=== PATIENT | female | born 1945 | race Caucasian/White ===

== ENCOUNTER 2018-09-16 01:57 | Inpatient (IN) | payer MEDICARE ==
[~2018-09-16] VITALS: Ht 172.7 cm; Wt 75.1 kg
[2018-09-16 03:07] LABS: MICROSCOPIC AUTO
[2018-09-16 03:16] LABS: CULTURE INDICATED? YES
[2018-09-16] MEDS ORDERED: PIPERACILLIN/TAZO/PMX 3.375GM 50 ML ONE (03:25)
[2018-09-16 03:27] LABS: BASOPHILS # (AUTO) 0.01 x10^3/uL (0-0.1); BASOPHILS % (AUTO) 0 % (0-1); EOSINOPHILS % (AUTO) 0 % (1-7); LYMPHOCYTES % (AUTO) 6 % (22-44); MD NO; MEAN CORPUSCULAR HEMOGLOBIN 29.8 pg (27.0-34.8); MEAN CORPUSCULAR HGB CONC 32.8 g/dL (32.4-35.8); MEAN CORPUSCULAR VOLUME 90.8 fL (80-100); MEAN PLATELET VOLUME 9.6 fL (7.4-10.4); MONOCYTES % (AUTO) 2 % (2-9); NEUTROPHILS # (AUTO) 8.09 x10^3/uL (1.8-6.8); NEUTROPHILS % (AUTO) 92 % (42-75); PLATELET COUNT 180 x10^3/uL (130-400); RED BLOOD COUNT 5.34 x10^6/uL (3.82-5.3); RED CELL DISTRIBUTION WIDTH 15.9 % (9.6-15.2)
[2018-09-16] MEDS ORDERED: VANCOMYCIN 1,300 MG in SODIUM CHLORIDE 0.9% 250 ML IV ONE (03:30)
[2018-09-16] MEDS ORDERED: PIPERACILLIN/TAZO/PMX 3.375GM 50 ML IVPB ONE (03:30)
[2018-09-16] MEDS ORDERED: SODIUM CHLORIDE 0.9% 1,000ML IVBOLUS ONE (03:30)
[2018-09-16] MEDS ORDERED: VANCOMYCIN PER PHARMACY IV ONE (03:30)
[2018-09-16 03:35] LABS: ALANINE AMINOTRANSFERASE 26 U/L (12-78); ALBUMIN 2.6 g/dL (3.4-5.0); ANION GAP 7 mmol/L (5-15); CALCIUM 8.2 mg/dL (8.5-10.1); CHLORIDE 113 mmol/L (98-107); CREATININE 1.44 mg/dL (0.55-1.02)
[2018-09-16 03:37] LABS: ALKALINE PHOSPHATASE 132 U/L (45-117); BILIRUBIN,TOTAL 0.3 mg/dL (0.2-1.0); TOTAL PROTEIN 7.1 g/dL (6.4-8.2)
[2018-09-16 04:17] LABS: PROTHROMBIN TIME 10.6 Seconds (9.6-11.5)
[2018-09-16] MEDS ORDERED: SODIUM CHLORIDE 0.9% 1,000 ML IV ONE (04:35)
[2018-09-16] MEDS ORDERED: ONDANSETRON 2MG/ML, 2ML IVPush PRN ×2 (05:00→06:00)
[2018-09-16] MEDS ORDERED: hydrALAzine 20 MG/ML, 1ML IVPush PRN (06:00)
[2018-09-16] MEDS ORDERED: DOCUSATE 100 MG CAPSULE PO PRN (06:00)
[2018-09-16] MEDS ORDERED: OXYcodone IR 5MG TABLET PO PRN (06:00)
[2018-09-16] MEDS: HEPARIN 5,000 UNITS/ML, 1ML SQ SCH ×3 (06:23→22:26)
[2018-09-16] MEDS: SODIUM CHLORIDE 0.9% 1,000 ML IV SCH ×3 (06:23→21:58)
[2018-09-16] MEDS ORDERED: PHARMACOKINETIC CONSULTATION MC ONE (06:30)
[2018-09-16] MEDS ORDERED: PHARMACOKINETIC MONITORING MC PRN (06:30)
[2018-09-16] MEDS ORDERED: VANCOMYCIN PER PHARMACY MC PRN (06:30)
[2018-09-16 06:39] LABS: OSMOLALITY,URINE 399 mOsm/kg (500-850)
[2018-09-16 06:45] LABS: CHLORIDE,URINE RANDOM 49 mmol/L; POTASSIUM,URINE RANDOM 43 mmol/L; SODIUM,URINE RANDOM 52 mmol/L
[2018-09-16 06:48] VITALS: BP 94/58
[2018-09-16] MEDS ORDERED: DIAZ2TAB3 PO (12:19)
[2018-09-16] MEDS ORDERED: BACL20TA PO (12:19)
[2018-09-16] MEDS ORDERED: LEVO100T PO (12:25)
[2018-09-16] MEDS ORDERED: BRIM5DRO3 EACHEYE (12:25)
[2018-09-16] MEDS ORDERED: BACL5TAB PO ×2 (12:25)
[2018-09-16 12:28] VITALS: BP 100/52
[2018-09-16] MEDS ORDERED: PRED10TA14 PO (13:14)
[2018-09-16] MEDS ORDERED: TRAV5DRO EACHEYE (13:14)
[2018-09-16] MEDS ORDERED: NYST15CR2 TP (13:14)
[2018-09-16] MEDS ORDERED: AMIT10TA PO (13:14)
[2018-09-16] MEDS: PIPERACILLIN/TAZO/PMX 3.375GM 50 ML IV SCH ×2 (15:13→22:26)
[2018-09-16] MEDS ORDERED: BACL-19 PO ×3 (15:57)
[2018-09-16] MEDS ORDERED: MENT3.5O EXT (15:57)
[2018-09-16] MEDS ORDERED: POTA20TA14 PO (15:57)
[2018-09-16] MEDS ORDERED: ALBU0.63 NEB (15:57)
[2018-09-16] MEDS ORDERED: SENN1TAB84 PO/NG (15:57)
[2018-09-16] MEDS ORDERED: (Brimonidine Tartrate** (Alphagan P**) 1 DROP(S)) HOMETD SCH (16:00)
[2018-09-16] MEDS ORDERED: TEMPLATE NON-FORMULARY MED. 1 EA, TEMPLATE NON-FORMULARY MED. 1 EA EACHEYE SCH ×3 (16:00→21:00)
[2018-09-16] MEDS ORDERED: TRAVOPROST OPHTH 0.004%, 2.5ML HOMEOPHTH PRN (16:00)
[2018-09-16] MEDS ORDERED: NYSTATIN/TRIAMCINOLONE CRM 15GM TP PRN (16:00)
[2018-09-16 17:19] LABS: ANION GAP 9 mmol/L (5-15); CALCIUM 7.5 mg/dL (8.5-10.1); CHLORIDE 120 mmol/L (98-107)
[2018-09-16 19:43] VITALS: BP 98/57
[2018-09-16] MEDS ORDERED: TRAVOPROST OPHTH 0.004%, 2.5ML HOMEOPHTH SCH (20:00)
[2018-09-17 01:58] VITALS: BP 116/66
[2018-09-17 05:36] LABS: BASOPHILS # (AUTO) 0.01 x10^3/uL (0-0.1); BASOPHILS % (AUTO) 0 % (0-1); EOSINOPHILS % (AUTO) 0 % (1-7); LYMPHOCYTES # (AUTO) 1.09 x10^3/uL (1-3.4); LYMPHOCYTES % (AUTO) 15 % (22-44); MD NO; MEAN CORPUSCULAR HEMOGLOBIN 29.9 pg (27.0-34.8); MEAN CORPUSCULAR HGB CONC 33.1 g/dL (32.4-35.8); MEAN CORPUSCULAR VOLUME 90.3 fL (80-100); MEAN PLATELET VOLUME 9.4 fL (7.4-10.4); MONOCYTES # (AUTO) 0.22 x10^3/uL (0.2-0.8); MONOCYTES % (AUTO) 3 % (2-9); NEUTROPHILS # (AUTO) 5.99 x10^3/uL (1.8-6.8); NEUTROPHILS % (AUTO) 82 % (42-75); PLATELET COUNT 154 x10^3/uL (130-400); RED BLOOD COUNT 4.31 x10^6/uL (3.82-5.3); RED CELL DISTRIBUTION WIDTH 15.7 % (9.6-15.2)
[2018-09-17 05:43] LABS: ANION GAP 9 mmol/L (5-15); CHLORIDE 123 mmol/L (98-107); CREATININE 0.65 mg/dL (0.55-1.02)
[2018-09-17] MEDS: PIPERACILLIN/TAZO/PMX 3.375GM 50 ML IV SCH ×4 (05:50→23:51)
[2018-09-17] MEDS: HEPARIN 5,000 UNITS/ML, 1ML SQ SCH (05:50)
[2018-09-17] MEDS: SODIUM CHLORIDE 0.9% 1,000 ML IV SCH (05:50)
[2018-09-17 05:56] LABS: VANCOMYCIN,RANDOM 6.5 mcg/mL
[2018-09-17 08:39] VITALS: BP 127/78
[2018-09-17] MEDS: VANCOMYCIN 1,300 MG in SODIUM CHLORIDE 0.9% 250 ML IV SCH (10:24)
[2018-09-17] MEDS ORDERED: POTASSIUM PHOSPHATE 44 MEQ in SODIUM CHLORIDE 0.9% 500 ML IV ONE (10:30)
[2018-09-17 12:43] VITALS: BP 111/68
[2018-09-17] MEDS: D5%-0.45NACL+KCL 20MEQ 1,000 ML IV SCH ×3 (12:57→23:51)
[2018-09-17] MEDS: ENOXAPARIN 40 MG/0.4 ML SQ SCH (16:57)
[2018-09-17 18:36] LABS: ANION GAP 14 mmol/L (5-15); CALCIUM 7.1 mg/dL (8.5-10.1); CHLORIDE 125 mmol/L (98-107)
[2018-09-17 18:37] LABS: CREATININE 0.55 mg/dL (0.55-1.02)
[2018-09-17 20:23] VITALS: BP 107/58
[2018-09-17] MEDS: morphine SULFATE 10 MG/ML, 1ML IVPush PRN (20:25)
[2018-09-18 03:20] VITALS: BP 120/73
[2018-09-18 04:27] LABS: BASOPHILS # (AUTO) 0.03 x10^3/uL (0-0.1); BASOPHILS % (AUTO) 0 % (0-1); EOSINOPHILS % (AUTO) 0 % (1-7); LYMPHOCYTES # (AUTO) 1.51 x10^3/uL (1-3.4); LYMPHOCYTES % (AUTO) 19 % (22-44); MD NO; MEAN CORPUSCULAR HEMOGLOBIN 30.1 pg (27.0-34.8); MEAN CORPUSCULAR HGB CONC 32.9 g/dL (32.4-35.8); MEAN CORPUSCULAR VOLUME 91.5 fL (80-100); MEAN PLATELET VOLUME 9.3 fL (7.4-10.4); MONOCYTES # (AUTO) 0.32 x10^3/uL (0.2-0.8); MONOCYTES % (AUTO) 4 % (2-9); NEUTROPHILS # (AUTO) 5.96 x10^3/uL (1.8-6.8); NEUTROPHILS % (AUTO) 76 % (42-75); PLATELET COUNT 165 x10^3/uL (130-400); RED BLOOD COUNT 4.43 x10^6/uL (3.82-5.3); RED CELL DISTRIBUTION WIDTH 16.5 % (9.6-15.2)
[2018-09-18 04:40] LABS: ANION GAP 10 mmol/L (5-15); CALCIUM 7.5 mg/dL (8.5-10.1); CHLORIDE 125 mmol/L (98-107); CREATININE 0.73 mg/dL (0.55-1.02)
[2018-09-18] MEDS: PIPERACILLIN/TAZO/PMX 3.375GM 50 ML IV SCH ×3 (06:12→18:33)
[2018-09-18 07:51] VITALS: BP 103/60
[2018-09-18] MEDS ORDERED: POTASSIUM PHOSPHATE 44 MEQ in SODIUM CHLORIDE 0.9% 500 ML IV ONE (08:30)
[2018-09-18] MEDS: DEXTROSE 5% 1,000 ML IV SCH (10:02)
[2018-09-18] MEDS: VANCOMYCIN 1,300 MG in SODIUM CHLORIDE 0.9% 250 ML IV SCH (10:04)
[2018-09-18 12:15] VITALS: BP 100/61
[2018-09-18 17:23] LABS: ANION GAP 8 mmol/L (5-15); CALCIUM 7.5 mg/dL (8.5-10.1); CHLORIDE 123 mmol/L (98-107)
[2018-09-18] MEDS: ENOXAPARIN 40 MG/0.4 ML SQ SCH (17:37)
[2018-09-18 18:51] VITALS: BP 102/64
[2018-09-18] MEDS ORDERED: DIAZEPAM 5 MG/ML, 2ML IV ONE (20:30)
[2018-09-18] MEDS: morphine SULFATE 10 MG/ML, 1ML IVPush PRN ×2 (21:01→23:47)
[2018-09-19] MEDS: DEXTROSE 5% 1,000 ML IV SCH (01:20)
[2018-09-19] MEDS: PIPERACILLIN/TAZO/PMX 3.375GM 50 ML IV SCH ×4 (01:21→19:34)
[2018-09-19 02:11] VITALS: BP 109/66
[2018-09-19 04:33] LABS: BASOPHILS # (AUTO) 0.03 x10^3/uL (0-0.1); BASOPHILS % (AUTO) 1 % (0-1); EOSINOPHILS # (AUTO) 0.05 x10^3/uL (0-0.4); EOSINOPHILS % (AUTO) 1 % (1-7); LYMPHOCYTES # (AUTO) 1.78 x10^3/uL (1-3.4); LYMPHOCYTES % (AUTO) 34 % (22-44); MD NO; MEAN CORPUSCULAR HEMOGLOBIN 30.1 pg (27.0-34.8); MEAN CORPUSCULAR HGB CONC 33.4 g/dL (32.4-35.8); MEAN CORPUSCULAR VOLUME 90.1 fL (80-100); MEAN PLATELET VOLUME 9.4 fL (7.4-10.4); MONOCYTES # (AUTO) 0.27 x10^3/uL (0.2-0.8); MONOCYTES % (AUTO) 5 % (2-9); NEUTROPHILS # (AUTO) 3.04 x10^3/uL (1.8-6.8); NEUTROPHILS % (AUTO) 59 % (42-75); PLATELET COUNT 161 x10^3/uL (130-400); RED BLOOD COUNT 3.81 x10^6/uL (3.82-5.3); RED CELL DISTRIBUTION WIDTH 15.9 % (9.6-15.2)
[2018-09-19 04:43] LABS: ANION GAP 7 mmol/L (5-15); CALCIUM 6.8 mg/dL (8.5-10.1); CHLORIDE 119 mmol/L (98-107); CREATININE 0.49 mg/dL (0.55-1.02)
[2018-09-19 07:12] VITALS: BP 141/70
[2018-09-19] MEDS ORDERED: POTASSIUM PHOSPHATE 44 MEQ in SODIUM CHLORIDE 0.9% 500 ML IV ONE (08:00)
[2018-09-19] MEDS ORDERED: MAGNESIUM SULFATE PMX 2GM/50ML 50 ML IV ONE (08:00)
[2018-09-19] MEDS: POTASSIUM CHLORIDE 20 MEQ in DEXTROSE 5% 1,000 ML IV SCH ×2 (09:18→17:33)
[2018-09-19] MEDS: VANCOMYCIN 1,300 MG in SODIUM CHLORIDE 0.9% 250 ML IV SCH (11:26)
[2018-09-19 12:42] VITALS: BP 113/67
[2018-09-19] MEDS: ENOXAPARIN 40 MG/0.4 ML SQ SCH (16:33)
[2018-09-19 16:41] LABS: ANION GAP 6 mmol/L (5-15); CALCIUM 7.3 mg/dL (8.5-10.1); CHLORIDE 115 mmol/L (98-107); CREATININE 0.43 mg/dL (0.55-1.02)
[2018-09-19 20:00] VITALS: BP 133/77
[2018-09-20] MEDS: PIPERACILLIN/TAZO/PMX 3.375GM 50 ML IV SCH ×4 (01:00→19:56)
[2018-09-20 02:00] VITALS: BP 144/77
[2018-09-20] MEDS: POTASSIUM CHLORIDE 20 MEQ in DEXTROSE 5% 1,000 ML IV SCH (03:06)
[2018-09-20 05:22] LABS: BASOPHILS # (AUTO) 0.03 x10^3/uL (0-0.1); BASOPHILS % (AUTO) 1 % (0-1); EOSINOPHILS # (AUTO) 0.06 x10^3/uL (0-0.4); EOSINOPHILS % (AUTO) 1 % (1-7); LYMPHOCYTES # (AUTO) 1.56 x10^3/uL (1-3.4); LYMPHOCYTES % (AUTO) 28 % (22-44); MD NO; MEAN CORPUSCULAR HEMOGLOBIN 29.6 pg (27.0-34.8); MEAN CORPUSCULAR HGB CONC 32.8 g/dL (32.4-35.8); MEAN CORPUSCULAR VOLUME 90.1 fL (80-100); MEAN PLATELET VOLUME 9.1 fL (7.4-10.4); MONOCYTES # (AUTO) 0.32 x10^3/uL (0.2-0.8); MONOCYTES % (AUTO) 6 % (2-9); NEUTROPHILS # (AUTO) 3.66 x10^3/uL (1.8-6.8); NEUTROPHILS % (AUTO) 65 % (42-75); PLATELET COUNT 189 x10^3/uL (130-400); RED BLOOD COUNT 4.33 x10^6/uL (3.82-5.3); RED CELL DISTRIBUTION WIDTH 15.6 % (9.6-15.2)
[2018-09-20 05:30] LABS: CHLORIDE 111 mmol/L (98-107)
[2018-09-20 05:35] LABS: ANION GAP 6 mmol/L (5-15); CALCIUM 8.2 mg/dL (8.5-10.1); CREATININE 0.45 mg/dL (0.55-1.02)
[2018-09-20 07:59] VITALS: BP 105/63
[2018-09-20] MEDS: VANCOMYCIN 1,300 MG in SODIUM CHLORIDE 0.9% 250 ML IV SCH (10:43)
[2018-09-20 14:00] VITALS: BP 107/60
[2018-09-20] MEDS: ENOXAPARIN 40 MG/0.4 ML SQ SCH (16:31)
[2018-09-20 20:46] VITALS: BP 95/58
[2018-09-21] MEDS: PIPERACILLIN/TAZO/PMX 3.375GM 50 ML IV SCH ×4 (02:05→20:08)
[2018-09-21 02:11] VITALS: BP 109/69
[2018-09-21 07:30] VITALS: BP 138/76
[2018-09-21] MEDS ORDERED: POTASSIUM CHLORIDE 20 MEQ in DEXTROSE 5% 1,000 ML IV SCH (08:30)
[2018-09-21] MEDS: VANCOMYCIN 1,300 MG in SODIUM CHLORIDE 0.9% 250 ML IV SCH (10:46)
[2018-09-21 14:00] VITALS: BP 120/63
[2018-09-21] MEDS: ENOXAPARIN 40 MG/0.4 ML SQ SCH (17:35)
[2018-09-21 20:08] VITALS: BP 92/52
[2018-09-21] MEDS: ACETAMINOPHEN 325 MG TABLET PO PRN (22:23)
[2018-09-22 01:13] VITALS: BP 113/68
[2018-09-22] MEDS: PIPERACILLIN/TAZO/PMX 3.375GM 50 ML IV SCH ×2 (02:37→08:14)
[2018-09-22 05:15] LABS: ANION GAP 6 mmol/L (5-15); CHLORIDE 107 mmol/L (98-107)
[2018-09-22 05:16] LABS: CREATININE 0.74 mg/dL (0.55-1.02)
[2018-09-22 08:15] VITALS: BP 109/69
[2018-09-22 14:30] VITALS: BP 96/60
[2018-09-22] MEDS ORDERED: CEFD300C37 PO (15:08)
[2018-09-22] MEDS ORDERED: CLIN300C3 PO/NG (15:08)
[2018-09-22] MEDS: CLINDAMYCIN PMX 300MG/50ML 50 ML IV SCH (15:48)
[2018-09-22] MEDS: CEFTRIAXONE PMX 1GM/50ML 50 ML IV SCH (17:17)
[2018-09-22] MEDS: ENOXAPARIN 40 MG/0.4 ML SQ SCH (17:17)
[2018-09-22 19:31] VITALS: BP 118/69
[2018-09-22] MEDS: ACETAMINOPHEN 325 MG TABLET PO PRN (21:19)
[2018-09-23] MEDS: CLINDAMYCIN PMX 300MG/50ML 50 ML IV SCH ×3 (00:55→17:33)
[2018-09-23 01:30] VITALS: BP 101/61
[2018-09-23 08:25] VITALS: BP 109/70
[2018-09-23] MEDS: CEFTRIAXONE PMX 1GM/50ML 50 ML IV SCH (11:37)
[2018-09-23 14:00] VITALS: BP 99/62
[2018-09-23] MEDS: ENOXAPARIN 40 MG/0.4 ML SQ SCH (17:33)
[2018-09-23 19:46] VITALS: BP 94/60
[2018-09-24] MEDS: CLINDAMYCIN PMX 300MG/50ML 50 ML IV SCH ×3 (00:39→17:38)
[2018-09-24 01:20] VITALS: BP 102/65
[2018-09-24 07:25] VITALS: BP 99/63
[2018-09-24] MEDS: CEFTRIAXONE PMX 1GM/50ML 50 ML IV SCH (12:13)
[2018-09-24 13:25] VITALS: BP 95/60
[2018-09-24] MEDS: ENOXAPARIN 40 MG/0.4 ML SQ SCH (17:38)
[2018-09-24 19:41] VITALS: BP 95/59
[2018-09-25] MEDS: CLINDAMYCIN PMX 300MG/50ML 50 ML IV SCH ×3 (00:47→17:41)
[2018-09-25 01:19] VITALS: BP 107/65
[2018-09-25 09:15] VITALS: BP 113/69
[2018-09-25] MEDS: CEFTRIAXONE PMX 1GM/50ML 50 ML IV SCH (11:51)
[2018-09-25 14:56] VITALS: BP 103/66
[2018-09-25] MEDS: ENOXAPARIN 40 MG/0.4 ML SQ SCH (16:42)
[2018-09-25] MEDS ORDERED: ALBUTEROL/IPRATROPIUM 2.5MG/0.5MG, 3 ML NPPB PRN (17:30)
[2018-09-25 18:59] VITALS: BP 92/55
[2018-09-25] MEDS: ALBUTEROL/IPRATROPIUM 2.5MG/0.5MG, 3 ML NPPB SCH (20:00)
[2018-09-26 00:44] VITALS: BP 101/59
[2018-09-26] MEDS: CLINDAMYCIN PMX 300MG/50ML 50 ML IV SCH ×3 (03:14→18:37)
[2018-09-26] MEDS: ALBUTEROL/IPRATROPIUM 2.5MG/0.5MG, 3 ML NPPB SCH ×4 (07:15→19:17)
[2018-09-26 09:13] VITALS: BP 110/67
[2018-09-26] MEDS: CEFTRIAXONE PMX 1GM/50ML 50 ML IV SCH (12:02)
[2018-09-26 14:28] VITALS: BP 95/59
[2018-09-26] MEDS: ENOXAPARIN 40 MG/0.4 ML SQ SCH (18:37)
[2018-09-26 19:50] VITALS: BP 93/54
[2018-09-27 00:56] VITALS: BP 106/66
[2018-09-27] MEDS: CLINDAMYCIN PMX 300MG/50ML 50 ML IV SCH (03:37)
[2018-09-27] MEDS: ALBUTEROL/IPRATROPIUM 2.5MG/0.5MG, 3 ML NPPB SCH ×3 (07:00→14:45)
[2018-09-27 10:11] VITALS: BP 88/57
== END 2018-09-27 15:19 | disposition home health service (06) | DRG 871 ==
LOC: ED 04:03 → EDIP 04:35 → 5SO 05:22 → ICU 09-17 14:17 → 3NE 09-19 14:49
PROVIDERS: ADMIT Internal Medicine; ATTEND Internal Medicine
PROC: 0T9B70Z Drainage of Bladder with Drainage Device, Via Natural or Artificial Opening (ICD-10-PCS; principal; 2018-09-16)
DX: A41.9 Sepsis, unspecified organism (principal); J15.0 Pneumonia due to Klebsiella pneumoniae; J15.1 Pneumonia due to Pseudomonas; N17.0 Acute kidney failure with tubular necrosis; R65.21 Severe sepsis with septic shock; J69.0 Pneumonitis due to inhalation of food and vomit; E44.0 Moderate protein-calorie malnutrition; E87.0 Hyperosmolality and hypernatremia; Z68.25 Body mass index [BMI] 25.0-25.9, adult; B96.20 Unspecified Escherichia coli [E. coli] as the cause of diseases classified elsewhere; E03.9 Hypothyroidism, unspecified; E83.39 Other disorders of phosphorus metabolism; E83.42 Hypomagnesemia; E86.0 Dehydration; E87.6 Hypokalemia; G35 Multiple sclerosis; R13.10 Dysphagia, unspecified; Z74.01 Bed confinement status; Z82.49 Family history of ischemic heart disease and other diseases of the circulatory system
CPT/HCPCS: 36415; 71045; 74018; 74230; 80048; 80053; 80202; 81001; 82436; 82570; 83605; 83735; 83935; 84100; 84133; 84145; 84300; 84443; 85025; 85610; 85730; 87040; 87070; 87077; 87086; 87186; 87205; 93005; 94640; 94667; 94668; 96365; 96375; 99291; G0378; J0696; J1644; J1650; J2405; J2543; J3360; J3370; J3480; J7070; J7620; J2270; J3475; J7030; J7040; J7050